=== PATIENT | female | born 1970 ===

== ENCOUNTER 2022-02-13 17:17 | Emergency (ER) | payer OTHER ==
[2022-02-13 19:56] VITALS: BP 136/80; PULSE 63; RESP 13
[2022-02-13] MEDS ORDERED: TOPICAL SKIN ADHESIVE 1 EACH AMP TOPICAL ONE (19:59)
[2022-02-13] MEDS ORDERED: LIDOCAINE/EPINEPHR/TETRACAINE 5 ML BOTTLE TOPICAL ONE (19:59)
--- NOTE | 2022-02-13 20:07 | ED ---
Skin/Abscess/FB HPI - General Chief complaint: Skin/Abscess/Foreign Body Stated complaint: [facility] - Thumb Lac Time Seen by Provider: 02/13/22 19:49 Source: patient, RN notes reviewed Mode of arrival: ambulatory - History of Present Illness Initial comments: This is a pleasant 51-year-old female who sustained a laceration to her left thumb at 4:45 PM at work. Patient denying any significant pain. Patient is up-to-date on tetanus. No paresthesias. no chest pain or shortness of breath, no numbness or tingling, no skin rashes or lesions. Past medical, surgical, social, and family history reviewed. complaint: laceration - Related Data Home Medications Medication Instructions Recorded Confirmed No Known Home Medications 02/13/22 02/13/22 Allergies Allergy/AdvReac Type Severity Reaction Status Date / Time No Known Allergies Allergy Verified 02/13/22 20:29 Review of Systems ROS Statement: Those systems with pertinent positive or pertinent negative responses have been documented in the HPI. ROS Other: All systems not noted in ROS Statement are negative. Past Medical History Past Medical History: No Reported History History of Any Multi-Drug Resistant Organisms: None Reported Past Surgical History: No Surgical Hx Reported Past Psychological History: No Psychological Hx Reported Smoking Status: Never smoker Past Alcohol Use History: None Reported Past Drug Use History: None Reported General Exam General appearance: alert, in no apparent distress Head exam: Present: atraumatic, normocephalic, normal inspection Eye exam: Present: normal appearance, EOMI ENT exam: Present: normal exam Neck exam: Present: normal inspection Respiratory exam: Present: normal lung sounds bilaterally. Absent: respiratory distress, wheezes, rales, rhonchi, stridor Cardiovascular Exam: Present: regular rate, normal rhythm, normal heart sounds. Absent: systolic murmur, diastolic murmur, rubs, gallop, clicks GI/Abdominal exam: Present: soft. Absent: tenderness Extremities exam: Present: full ROM, normal capillary refill, other (Sensation intact. Tendon function intact in all planes. No other injuries). Absent: normal inspection (Patient has a 1 cm laceration to the lateral aspect of her left thumb. Overlying the distal phalanx adjacent to the nail plate. No bony point tenderness.), tenderness (Patient does have minimal damage to the nail plate itself on the ulnar aspect. However this is tiny, nail be left intact.) Back exam: Present: normal inspection, full ROM Neurological exam: Present: alert, oriented X3, CN II-XII intact Psychiatric exam: Present: normal affect, normal mood Skin exam: Present: warm, dry Course Vital Signs 02/13/22 02/13/22 19:03 19:54 Temperature 98.3 F Pulse Rate 68 63 Respiratory 18 13 Rate Blood Pressure 134/69 136/80 O2 Sat by Pulse 96 Oximetry Procedures - Laceration Laceration #1 Consent Obtained: verbal consent Indication: laceration Site: upper extremity (Left thumb) Size (cm): 1 Description: linear Depth: simple, single layer Pre-repair: wound explored, irrigated extensively, deep structures intact Type of Sutures: other (adhesive) Patient Tolerated Procedure: well, no complications Additional Comments: Topical anesthesia with let solution Medical Decision Making - Medical Decision Making Patient Consalvo and care. Counseled on signs and symptoms of infection. Counseling follow-up. Patient was told to return to the ER for any signs or symptoms worsen. Told to return immediately if any other problems arise. All questions answered. Treatment plan discussed. Patient in agreement Every effort has been made to ensure accuracy of this dictation. However, due to the limitations of electronic medical records and dictation devices, errors in charting still occur. Tiny amount of damage to the nail plate. Nail be left intact. Impression Dr. Lovelace Disposition Clinical Impression: Laceration of left thumb with damage to nail Disposition: HOME SELF-CARE Condition: Good Instructions (If sedation given, give patient instructions): Skin Adhesive Care (ED) Additional Instructions: Follow-up with [facility]. Contact your human services supervisor in the morning for further guidance on follow-up and wound check. Follow-up with your regular physician as directed. Return to the ER immediately if any symptoms worsen, new symptoms arise, or any other problems develop. Is patient prescribed a controlled substance at d/c from ED?: No Referrals: None,Stated [Primary Care Provider] - 1-2 days Time of Disposition: 20:32
[2022-02-13 20:40] VITALS: TEMP 98.1
== END 2022-02-13 20:41 | disposition home or self-care (01) ==
LOC: EC 17:17
DX: S61.112A Laceration without foreign body of left thumb with damage to nail, initial encounter (principal); Y92.89 Other specified places as the place of occurrence of the external cause
CPT/HCPCS: 12001; 99282